=== PATIENT | female | born 1980 | race Caucasian/White ===

== ENCOUNTER 2017-09-15 10:40 | Outpatient (CLI) | payer BC ==
[~2017-09-15 10:40] MED LIST: IBUP-1222 PO; OXYC-302 PO
[2017-09-15 11:15] VITALS: BP 118/80
[2017-09-15] MEDS ORDERED: PREN1TAB10 PO (12:33)
== END 2017-09-15 12:51 | disposition home or self-care (01) ==
LOC: LDOP 10:40
PROVIDERS: ATTEND Obstetrics & Gynecology
DX: O09.523 Supervision of elderly multigravida, third trimester (principal); O26.893 Other specified pregnancy related conditions, third trimester; O62.9 Abnormality of forces of labor, unspecified; R10.9 Unspecified abdominal pain; Z3A.36 36 weeks gestation of pregnancy
CPT/HCPCS: 59025; 81001; 87081; 87086; 99211; G0463

== ENCOUNTER 2017-10-01 06:05 | Inpatient (IN) | payer BC ==
[~2017-10-01] VITALS: Ht 157.5 cm; Wt 71.4 kg
[~2017-10-01 06:05] MED LIST changes: +PREN1TAB10 PO
[2017-10-01] MEDS ORDERED: OXYTOCIN 30U/ 0.9% NaCL 500ML 500 ML ONE ×2 (06:22→16:43)
[2017-10-01] MEDS ORDERED: OXYTOCIN 30U/ 0.9% NaCL 500ML 500 ML IV ONE (06:29)
[2017-10-01] MEDS ORDERED: OXYTOCIN 30U/ 0.9% NaCL 500ML 500 ML IV PRN (06:29)
[2017-10-01] MEDS: D5%-LACTATED RINGERS 1,000 ML IV SCH ×3 (06:29→22:29)
[2017-10-01] MEDS ORDERED: FENTANYL PF 100 MCG/2ML IVPush PRN (06:30)
[2017-10-01] MEDS ORDERED: ONDANSETRON 2MG/ML, 2ML IVPush PRN (06:30)
[2017-10-01] MEDS ORDERED: FENTANYL PF 100 MCG/2ML IV PRN (06:30)
[2017-10-01] MEDS ORDERED: NEWBORN KIT ONE (06:31)
[2017-10-01] MEDS: LACTATED RINGERS 1,000 ML IV SCH ×4 (06:50→17:31)
[2017-10-01 07:05] LABS: HEMATOCRIT 37.2 % (34.6-47.8); HEMOGLOBIN 12.6 g/dL (11.7-16.4); WHITE BLOOD COUNT 9.1 x10^3/uL (3.4-10)
[2017-10-01] MEDS ORDERED: BUPIVACAINE/PF 0.25% ONE (09:12)
[2017-10-01] MEDS ORDERED: FENTANYL/BUPIV./NS/PF 250 ML EPIDCONT ONE (09:13)
[2017-10-01] MEDS ORDERED: MISOPROSTOL 200 MCG TABLET PO PRN (15:00)
[2017-10-01] MEDS ORDERED: CALCIUM CARBONATE 500 MG TAB.CHEW PO PRN (15:00)
[2017-10-01] MEDS ORDERED: OXYcodone/APAP 5/325MG TABLET PO PRN ×2 (15:00)
[2017-10-01] MEDS ORDERED: ONDANSETRON 2MG/ML, 2ML IV PRN (15:00)
[2017-10-01] MEDS: OXYTOCIN 30U/ 0.9% NaCL 500ML 500 ML IV SCH (16:46)
[2017-10-01 17:05] VITALS: BP 115/72
[2017-10-01] MEDS: IBUPROFEN 600 MG TABLET PO PRN (17:40)
[2017-10-01 20:00] VITALS: BP 100/60
[2017-10-01 23:35] LABS: HEMATOCRIT 32.8 % (34.6-47.8); HEMOGLOBIN 11.1 g/dL (11.7-16.4); WHITE BLOOD COUNT 13.1 x10^3/uL (3.4-10)
[2017-10-02] MEDS: IBUPROFEN 600 MG TABLET PO PRN ×4 (00:09→20:21)
[2017-10-02 00:15] VITALS: BP 96/63
[2017-10-02] MEDS: OXYTOCIN 30U/ 0.9% NaCL 500ML 500 ML IV SCH ×3 (00:49→20:49)
[2017-10-02 05:00] VITALS: BP 101/61
[2017-10-02] MEDS: D5%-LACTATED RINGERS 1,000 ML IV SCH (06:29)
[2017-10-02 09:27] VITALS: BP 89/55
[2017-10-02] MEDS: PRENATAL VIT/IRON/FA 1 EACH TABLET PO SCH (09:31)
[2017-10-02] MEDS: DOCUSATE 100 MG CAPSULE PO PRN ×2 (09:32→20:21)
[2017-10-02 13:13] VITALS: BP 112/63
[2017-10-02 20:15] VITALS: BP 106/70
[2017-10-03] MEDS: IBUPROFEN 600 MG TABLET PO PRN (06:39)
[2017-10-03] MEDS: DOCUSATE 100 MG CAPSULE PO PRN (06:39)
[2017-10-03] MEDS: OXYTOCIN 30U/ 0.9% NaCL 500ML 500 ML IV SCH (06:49)
[2017-10-03 07:15] VITALS: BP 109/68
[2017-10-03] MEDS: PRENATAL VIT/IRON/FA 1 EACH TABLET PO SCH (07:51)
[2017-10-03] MEDS ORDERED: IBUP-1222 PO (10:33)
[2017-10-03] MEDS ORDERED: DOCU-131 PO (10:33)
[2017-10-03] MEDS ORDERED: OXYC-302 PO (10:33)
== END 2017-10-03 12:35 | disposition home or self-care (01) | DRG 775 ==
LOC: LDIP 06:05 → 2NW 16:52
PROVIDERS: ADMIT Obstetrics & Gynecology; ATTEND Obstetrics & Gynecology
PROC: 10E0XZZ Delivery of Products of Conception, External Approach (ICD-10-PCS; principal; 2017-10-01)
PROC: 0DQR0ZZ Repair Anal Sphincter, Open Approach (ICD-10-PCS; 2017-10-01)
PROC: 3E0R3BZ Introduction of Anesthetic Agent into Spinal Canal, Percutaneous Approach (ICD-10-PCS; 2017-10-01)
PROC: 00HU33Z Insertion of Infusion Device into Spinal Canal, Percutaneous Approach (ICD-10-PCS; 2017-10-01)
PROC: 10907ZC Drainage of Amniotic Fluid, Therapeutic from Products of Conception, Via Natural or Artificial Opening (ICD-10-PCS; 2017-10-01)
DX: O99.62 Diseases of the digestive system complicating childbirth (principal); K90.0 Celiac disease; O70.20 Third degree perineal laceration during delivery, unspecified; Z37.0 Single live birth; O69.81X0 Labor and delivery complicated by cord around neck, without compression, not applicable or unspecified; Z3A.39 39 weeks gestation of pregnancy
CPT/HCPCS: 36415; 85025; 86850; 86900; J2590; J7120